=== PATIENT | female | born 1990 | race Caucasian/White ===

== ENCOUNTER 2019-08-29 15:26 | Emergency (ER) | payer MEDICAID, SELFPAY ==
[2019-08-29 15:28] VITALS: BP 126/76; PULSE 115; RESP 17; TEMP 36.2; O2SAT 95; BMI 24.4
--- NOTE | 2019-08-29 15:42 | ED.DCSUM_ITS ---
History of Present Illness Chief Complaint: Complaint Informant: Patient Onset: Weeks - 1 Narrative: 28-year-old female with history of UTI and pyelonephritis presents with UTI symptoms. She states she has urinary frequency and dysuria. She is had this for about a week. Is gotten worse and now she believes she has a kidney infection on the left. She does not have a history of kidney stones. She has not had a fever. She feels nauseous today and states she vomited once. Denies having a fever. Prior similar symptoms: Yes Past Medical History - Allergies and Home Meds Allergies/Adverse Reactions: Allergies No Known Allergies Allergy (Verified 08/29/19 15:27) Primary Care Physician: [facility] Doctor,Out of [NON-STAFF] - Past Medical History: - - Factor V Leiden, hepatitis C, UTI, pyelonephritis Lives: Spouse/ Significant Other Smoking Status: Current every day smoker Alcohol: None Drugs: None Review of Systems General: Denies: Chills, Fever Eyes: Denies: Visual changes - bilaterally, Diplopia ENT: Denies: Rhinorrhea, Sore throat Cardiovascular: Denies: Chest pain, Palpitations Respiratory: Denies: Dyspnea, Cough, Dyspnea on exertion Genitourinary: Reports: Dysuria, Frequency Musculoskeletal: Reports: - - Flank pain Skin: Denies: Rash Neurological: Denies: Headache Physical Exam Vital Signs/Narrative: Vital Signs Temp Pulse Resp BP Pulse Ox 08/29/19 15:28 97.2 F L 115 H 17 126/76 H 95 General: Well nourished, Well developed, No Acute Distress Head: Normocephalic, Atraumatic Eyes: Perrl, EOMI ENT: Moist mucous membranes Respiratory: No distress, CTA bilaterally Abdomen: Soft, - - CVA tenderness on the left. Back: CVA tenderness - left . Negative for: Spinal tenderness Extremities: Nontender, No edema Skin: Normal color Neurological: Alert, Oriented x3 Psychological: Normal affect Diagnostic/Tx/Re-eval - Medical Decision Making Presents with dysuria and flank pain on the left. She does have a UTI and I will treat her like pyelonephritis. She was given pain medication nausea medication in the ED and she felt improved. She was given her first dose of Keflex. She was given a prescription for this as well. Urine was cultured. We did discuss possible lab work however she declined at this time. States he usually does well with antibiotics orally. Patient given return precautions. ED Disposition - Plan for ED Patient: Disposition: Home or Assisted Living Diagnosis: Pyelonephritis Instructions: ED Pyelonephritis Female Adult Prescriptions: Cephalexin [Keflex] 500 mg PO Q6 #40 cap Prescription Printed Hydrocodone/Acetaminophen [[place] 5-325 Tablet] 1 ea PO Q6H PRN PRN #10 tab PRN Reason: Pain/Inflammation Prescription Printed Ondansetron [Zofran Odt] 4 mg PO Q8H PRN PRN #14 tab PRN Reason: Nausea Prescription Printed Referrals: [facility] Doctor,Out of [NON-STAFF] -
[2019-08-29] MEDS: Ondansetron ODT 4 MG Tablet 8 MG PO (15:52)
[2019-08-29] MEDS: HYDROcodone Bitartrate/Apap 5/325 Tablet PO (15:52)
[2019-08-29 15:57] LABS: Mucous, Urine 0 SEEN /hpf (<or=2+); Squamous Epithelial Cells - UA 0 SEEN /hpf (5-10)
[2019-08-29 15:59] LABS: Color, Urine Yellow (Yellow); Glucose, Dipstick Normal (Normal); Ketone-Dipstick 15 mg/dl (Negative); Leukocyte Esterase-Dipstick 500 /ul (Negative); Nitrite-Dipstick Positive (Negative); Occult Blood-Urine 150 /ul (Negative); Protein-Dipstick 100 mg/dl (Negative); Urine Bilirubin Dipstick Negative (Negative); Urine Clarity Cloudy (Clear); Urine Urobilinogen Normal (Normal)
[2019-08-29 16:05] LABS: White Blood Cells >100 SEEN /hpf (0-5)
[2019-08-29 16:10] LABS: Bacteria 3+ /hpf (None Seen); Red Blood Cells-Urine 10-25 SEEN /hpf (0-5)
[2019-08-29 16:13] LABS: Transitional Epithelial - Ur 0-5 SEEN /hpf (0-5)
[2019-08-29] MEDS: Cephalexin 250 MG Capsule 500 MG PO (16:56)
== END 2019-08-29 17:13 | disposition home or self-care (01) ==
LOC: ED 16:55
PROVIDERS: Emergency Provider Student in an Organized Health Care Education/Training Program
DX: N12 Tubulo-interstitial nephritis, not specified as acute or chronic (principal); B19.20 Unspecified viral hepatitis C without hepatic coma; F17.200 Nicotine dependence, unspecified, uncomplicated; Z87.440 Personal history of urinary (tract) infections
CPT/HCPCS: 81001; 87086; 87088; 87186; 99283

== ENCOUNTER 2020-02-25 14:32 | Emergency (ER) | payer MEDICAID, SELFPAY ==
[2020-02-25 14:33] VITALS: BP 106/70; PULSE 99; RESP 17; TEMP 36.7; O2SAT 100; BMI 24.6
[2020-02-25 15:08] LABS: Mucous, Urine 0 SEEN /hpf (<or=2+); Red Blood Cells-Urine 0 SEEN /hpf (0-5)
[2020-02-25 15:45] LABS: Color, Urine Yellow (Yellow); Glucose, Dipstick Normal (Normal); Ketone-Dipstick Negative (Negative); Leukocyte Esterase-Dipstick 25 /ul (Negative); Nitrite-Dipstick Negative (Negative); Occult Blood-Urine Negative /ul (Negative); Protein-Dipstick Negative (Negative); Urine Bilirubin Dipstick Negative (Negative); Urine Clarity Clear (Clear); Urine Urobilinogen 1 mg/dl (Normal)
[2020-02-25 15:58] LABS: Squamous Epithelial Cells - UA 0-5 SEEN /hpf (5-10); White Blood Cells 0-5 SEEN /hpf (0-5)
[2020-02-25 15:59] LABS: Bacteria RARE /hpf (None Seen); Internal QC Validated? YES +Cl - CLEAR BKGD; Pregnancy, Urine Negative Negative
--- NOTE | 2020-02-25 16:34 | ED.DCSUM_ITS ---
- ER Visit Summary Date of Service: 02/25/20 Chief Complaint: UTI History of Present Illness: The patient is a 29 F with UTI symptoms for a week and a half. She reports dysuria, frequency, foul-smelling urine. The pain goes up to her left flank sometimes. No history of kidney stones. History of hepatitis C and factor V Leiden. She does not take blood thinners. Physical Examination: Afebrile and vital signs unremarkable. Alert and oriented. No acute distress. Minimal right CVA tenderness. Abdomen mild right upper quadrant tenderness with light touch. Otherwise unremarkable. Skin appears normal without jaundice. Test Results: test negative. Urinalysis unremarkable. Emergency Department Course and Treatment: Clinically, patient had signs and symptoms of UTI. Her urinalysis did not show UTI. was negative. No blood in the urine, so kidney stone was unlikely. I advised the patient she may have other processes that could cause right flank pain. Clinically, it sounds like this is a UTI however. We talked about further evaluation for those other processes. She would like to try treatment of her UTI first and will follow up with her PCP. She will return for increasing pain or any other new or worsening symptoms. She was treated with Keflex. Cultures pending. Treatment Plan: As above Disposition: Discharge Impression: Dysuria This note was generated with [employer] dictation software. It may contain incorrect words, spelling, and punctuation that were not noted in review of the chart prior to signing ED Disposition - Plan for ED Patient: Referrals: VENKAT OLGUIN [Other]
--- NOTE | 2020-02-25 16:37 | ED.DEP ---
ED Disposition - Plan for ED Patient: Instructions: ED Bladder Infection, Female (Adult) Prescriptions: Cephalexin [Keflex] 500 mg PO Q6 #28 cap Prescription Printed Referrals: VENKAT OLGUIN [Other]
[2020-02-25] MEDS: Cephalexin 250 MG Capsule 500 MG PO (16:43)
== END 2020-02-25 16:44 | disposition home or self-care (01) ==
PROVIDERS: Emergency Provider Emergency Medicine
DX: R30.0 Dysuria (principal)
CPT/HCPCS: 81001; 81025; 87086; 87088; 99283